=== PATIENT | male | born 1970 | race Caucasian/White ===

== ENCOUNTER 2016-12-11 18:43 | Observation (INO) | payer OTHER ==
[~2016-12-11] VITALS: Ht 180.3 cm; Wt 81.2 kg
[~2016-12-11 18:43] MED LIST: BENTYL20 MG PO; CIPRO500 MG PO; CYCLOBENZAPRINE5 MG PO; FLAGYL500 MG PO; METOCLOPRAMIDE H5 MG PO; NO HOME MEDS; OMEPRAZOLE40 M1 PO; PRILOSEC40 MG PO; RANITIDINE HCL300 MG PO; TRAMADOL HCL50 MG PO; TYLENOL WITH C1 EACH PO; ULTRAM50 MG PO
[2016-12-11 19:40] LABS: HEMATOCRIT 42.2 % (38.0-50.0); MCH 30.4 PG (29.0-34.0); MCHC 33.4 G/DL (30.0-36.0); MCV 90.9 FL (86-99); MEAN PLAT.VOLUME 10.1 uM^3 (9.0-12.4); PLATELET COUNT 187 K/uL (156-360); RBC DIS.WIDTH-CV 12.2 % (11.8-14.6); RBC DIS.WIDTH-SD 40.4 % (39-53); RED BLOOD COUNT 4.64 M/uL (4.00-5.50)
[2016-12-11 19:43] LABS: WHITE BLOOD COUNT 8.7 K/uL (4.1-10.2)
[2016-12-11 19:48] LABS: ADD MIUA? YES; BILIRUBIN NEGATIVE; BLOOD SMALL; COLOR STRAW ((YELLOW)); GLUCOSE (STRIP) NEGATIVE; KETONES NEGATIVE; LEUKOCYTES TRACE; NITRITE NEGATIVE; PROTEIN (STRIP) 30; SPECIFIC GRAVITY 1.008 (1.000-1.030); UROBILINOGEN 0.2 MG/DL (0.2-1.0)
[2016-12-11 19:50] LABS: CHLORIDE 106 mEq/L (99-109); POTASSIUM 4.4 mEq/L (3.7-5.4); SODIUM 140 mEq/L (136-147)
[2016-12-11 19:52] LABS: GLUCOSE 92 mg/dL (70-99)
[2016-12-11 19:54] LABS: ANION GAP 9 MEQ/L (2-14); TOTAL BILIRUBIN 0.2 mg/dL (0.0-1.0)
[2016-12-11 19:56] LABS: ALKALINE PHOSPHATASE 73 IU/L (3-129); GFR ESTIMATE (CALCULATED) 44 mL/min/
[2016-12-11 19:57] LABS: UREA NITROGEN (BUN) 27 mg/dL (9-23)
[2016-12-11 20:02] LABS: BACTERIA RARE /HPF; EPITHELIAL CELLS RARE /HPF; MUCUS TRACE /LPF; UCUL ADDED? NO; WHITE BLOOD CELLS 0-5 /HPF (0-5)
[2016-12-11] MEDS ORDERED: FLEXERIL10 MG PO (23:02)
[2016-12-11] MEDS ORDERED: CIPRO500 MG PO (23:03)
[2016-12-11] MEDS ORDERED: FLAGYL500 MG PO (23:05)
[2016-12-11] MEDS ORDERED: VITAMIN D2000 UNI1 PO (23:06)
[2016-12-11] MEDS ORDERED: FISH OIL 1,0001 EAC7 PO (23:07)
[2016-12-11] MEDS ORDERED: VITAMIN C500 M1 PO (23:07)
[2016-12-11] MEDS ORDERED: MEN'S MULTI-VI1 EACH PO (23:07)
[2016-12-11] MEDS ORDERED: TUMERIC PO (23:09)
[2016-12-11] MEDS ORDERED: ADVIL200 MG PO (23:09)
[2016-12-11] MEDS ORDERED: GAS RELIEF125 MG PO (23:09)
[2016-12-12 02:11] VITALS: BP 118/81
[2016-12-12 03:25] LABS: UR CREATININE CONCENTRATION 60.1 MG/DL; URINE TOTAL PROTEIN 26 MG/DL (0-10)
[2016-12-12 03:58] VITALS: BP 112/73
[2016-12-12 08:04] VITALS: BP 126/73
[2016-12-12 08:19] LABS: INTACT PARATHYROID HORMONE 41 pg/mL (10-69)
[2016-12-12 08:30] LABS: SAMPLE HEMOLYSIS CHECK 0; SAMPLE ICTERIC CHECK 0; SAMPLE LIPEMIA CHECK 0
[2016-12-12] MEDS ORDERED: BENTYL10 MG PO (09:16)
[2016-12-12 10:24] LABS: ANION GAP 7 MEQ/L (2-14); CHLORIDE 110 MEQ/L (99-109); SAMPLE HEMOLYSIS CHECK 1; SAMPLE ICTERIC CHECK 0; SAMPLE LIPEMIA CHECK 0; SODIUM 142 MEQ/L (136-147)
[2016-12-12 10:26] LABS: POTASSIUM 4.1 MEQ/L (3.7-5.4)
[2016-12-12 11:00] LABS: HIV INDEX 0.09; HIV-1/2 AB/AG COMBO Nonreactive; HPCA INDEX 0.11
[2016-12-12 11:20] LABS: GFR ESTIMATE (CALCULATED) > 59 mL/min/; GLUCOSE 96 mg/dL (70-99); UREA NITROGEN (BUN) 19 mg/dL (9-23)
[2016-12-12 11:45] LABS: LYME DISEASE SEROLOGY SCREEN NEGATIVE (NEGATIVE)
== END 2016-12-12 12:06 | disposition home or self-care (01) ==
LOC: RME 18:43 → EME 18:43 → 5WEST 23:11 → EDOF 23:11 → 5WEST 12-12 01:44
PROVIDERS: Hospitalist; Physician Assistant Medical
DX: N17.9 Acute kidney failure, unspecified (principal); K57.32 Diverticulitis of large intestine without perforation or abscess without bleeding; M54.5 Low back pain; K59.00 Constipation, unspecified; F12.90 Cannabis use, unspecified, uncomplicated; Z87.891 Personal history of nicotine dependence
CPT/HCPCS: 72131; 74176; 76770; 80048; 80053; 81003; 82043; 82306; 82330; 82570; 83735; 83935; 83970; 84156; 84300; 85027; 85651; 86335; 86618; 86703; 86803; 99281; 99285; G0378; J1644; J3010; J7030

== ENCOUNTER → 2017-03-13 | Outpatient (CLI) | payer BC ==
[~2017-03-13] MED LIST changes: +ADVIL200 MG PO; +BENTYL10 MG PO; +FISH OIL 1,0001 EAC7 PO; +FLEXERIL10 MG PO; +GAS RELIEF125 MG PO; +MEN'S MULTI-VI1 EACH PO; +TUMERIC PO; +VITAMIN C500 M1 PO; +VITAMIN D2000 UNI1 PO
== END | disposition home or self-care (01) ==
LOC: NUC 06:54
DX: R14.2 Eructation (principal)
CPT/HCPCS: 78227; A9537; J2805

== ENCOUNTER → 2017-03-15 | Outpatient (CLI) | payer BC | END | disposition home or self-care (01) | LOC: NUC 09:33 | DX: M41.86 Other forms of scoliosis, lumbar region (principal); Q76.49 Other congenital malformations of spine, not associated with scoliosis; R14.2 Eructation | CPT/HCPCS: 78315; A9503 ==